=== PATIENT | male | born 2000 | race Caucasian/White ===

== ENCOUNTER 2021-01-30 18:07 | Emergency (ER) | payer SELFPAY ==
[~2021-01-30] VITALS: Ht 180.3 cm; Wt 70.3 kg
--- NOTE | 2021-01-31 13:24 | EKG ---
[facility] [address] [facility] [place] [address] Signed Sinus tachycardia Rightward axis Borderline ECG No previous ECGs available Confirmed by LIO VANEGAS MD ([id number] on 01/31/2021 1:24:12 PM Electronically Signed By: LIO VANEGAS MD 01/31/21 1324 PATIENT NAME: RAVI HOOKS Electrocardiogram DATE OF : [birth year] PHYSICIAN: LIO VANEGAS MD REPORT #: [id number] REPORT IS CONFIDENTIAL AND NOT TO BE RELEASED WITHOUT AUTHORIZATION
== END 2021-01-30 20:45 | disposition left against medical advice (07) ==
LOC: ED 18:07
DX: Z53.21 Procedure and treatment not carried out due to patient leaving prior to being seen by health care provider (principal)
CPT/HCPCS: 93005; 93010

== ENCOUNTER 2021-07-30 06:54 | Emergency (ER) | payer OTHER ==
[~2021-07-30] VITALS: Ht 180.3 cm; Wt 86.7 kg
[2021-07-30] MEDS ORDERED: PAROXETINE HCL20 MG PO (07:12)
[2021-07-30] MEDS ORDERED: ONDANSETRON ODT8 MG PO (07:24)
[2021-07-30] MEDS ORDERED: VENTOLIN HFA18 GM INH (07:24)
== END 2021-07-30 07:50 | disposition home or self-care (01) ==
LOC: ED 06:54
DX: K52.9 Noninfective gastroenteritis and colitis, unspecified (principal); J45.909 Unspecified asthma, uncomplicated; F17.200 Nicotine dependence, unspecified, uncomplicated; Z79.899 Other long term (current) drug therapy
CPT/HCPCS: 99283; A9270

== ENCOUNTER 2021-11-27 19:49 | Emergency (ER) | payer OTHER ==
[~2021-11-27] VITALS: Ht 180.3 cm; Wt 70.3 kg
[~2021-11-27 19:49] MED LIST: ONDANSETRON ODT8 MG PO; PAROXETINE HCL20 MG PO; VENTOLIN HFA18 GM INH
[2021-11-27] MEDS ORDERED: NAPROSYN500 MG (19:58)
[2021-11-27] MEDS ORDERED: HYDROXYZINE HCL50 MG (19:58)
[2021-11-27] MEDS ORDERED: ARIPIPRAZOLE10 MG PO (19:58)
[2021-11-27] MEDS ORDERED: PAROXETINE HCL40 MG PO (19:58)
[2021-11-27] MEDS ORDERED: DULOXETINE HCL30 MG PO (19:58)
== END 2021-11-27 22:06 | disposition home or self-care (01) ==
LOC: ED 19:49
DX: L53.9 Erythematous condition, unspecified (principal); J06.9 Acute upper respiratory infection, unspecified; J45.909 Unspecified asthma, uncomplicated; F17.200 Nicotine dependence, unspecified, uncomplicated

== ENCOUNTER 2022-02-22 13:08 | Emergency (ER) | payer OTHER ==
[~2022-02-22] VITALS: Ht 180.3 cm; Wt 72.6 kg
[~2022-02-22 13:08] MED LIST changes: +ARIPIPRAZOLE10 MG PO; +DULOXETINE HCL30 MG PO; +HYDROXYZINE HCL50 MG; +NAPROSYN500 MG; +PAROXETINE HCL40 MG PO
--- NOTE | 2022-02-23 14:29 | EKG ---
[facility] [address] [facility] [place] [address] Signed Normal sinus rhythm Normal ECG When compared with ECG of 30-JAN-2021 18:08, No significant change was found Confirmed by LIO VANEGAS MD ([id number] on 02/23/2022 2:29:32 PM Electronically Signed By: LIO VANEGAS MD 02/23/22 1429 PATIENT NAME: RAVI HOOKS Electrocardiogram DATE OF : [birth year] PHYSICIAN: LIO VANEGAS MD REPORT #: [id number] REPORT IS CONFIDENTIAL AND NOT TO BE RELEASED WITHOUT AUTHORIZATION
== END 2022-02-22 21:35 | disposition home or self-care (01) ==
LOC: ED 13:08
DX: R55 Syncope and collapse (principal); M54.2 Cervicalgia; G89.29 Other chronic pain; R11.2 Nausea with vomiting, unspecified; J45.909 Unspecified asthma, uncomplicated; F17.200 Nicotine dependence, unspecified, uncomplicated; Z79.899 Other long term (current) drug therapy
CPT/HCPCS: 36415; 80053; 85025; 93005; 93010; 99284-25; A9270